=== PATIENT | female | born 1975 | race Two or more races ===

== ENCOUNTER 2017-05-15 13:27 | Emergency (ER) | payer OTHER ==
[~2017-05-15] VITALS: Ht 165.1 cm; Wt 63.5 kg
[2017-05-15 14:21] VITALS: BP 107/64
[2017-05-15] MEDS ORDERED: TETANUS-DIPTH-ACEL PERTUSSIS 0.5ML SYRG IM ONE (15:30)
[2017-05-18 14:10] LABS: Hepatitis B Surface Antibody Positive
[2017-05-18 14:20] LABS: Hepatitis B Surface Antigen Negative (Negative)
== END 2017-05-15 15:43 | disposition home or self-care (01) ==
LOC: ER 13:27
DX: S61.232A Puncture wound without foreign body of right middle finger without damage to nail, initial encounter (principal); W46.0XXA Contact with hypodermic needle, initial encounter; Y93.89 Activity, other specified; Y99.0 Civilian activity done for income or pay; Y92.89 Other specified places as the place of occurrence of the external cause
CPT/HCPCS: 36415; 86703; 86706; 86803; 87340; 90471; 90715

== ENCOUNTER → 2017-06-26 | Outpatient (CLI) | payer OTHER ==
[2017-06-28 09:53] LABS: Hepatitis B Surface Antibody Positive
[2017-06-28 10:12] LABS: Hepatitis B Surface Antigen Negative (Negative)
== END | disposition home or self-care (01) ==
LOC: LAB 11:11
PROVIDERS: ATTEND Nurse Practitioner
DX: Z57.8 Occupational exposure to other risk factors (principal)
CPT/HCPCS: 36415; 86703; 86706; 86803; 87340

== ENCOUNTER → 2018-01-01 | Outpatient (CLI) | payer OTHER ==
[2018-01-03 10:48] LABS: Hepatitis B Surface Antibody Positive
[2018-01-03 13:35] LABS: Hepatitis B Surface Antigen Negative (Negative)
== END | disposition home or self-care (01) ==
LOC: LAB 09:02
PROVIDERS: ATTEND Preventive Medicine Preventive Medicine/Occupational Environmental Medicine
DX: Z15.89 Genetic susceptibility to other disease (principal)
CPT/HCPCS: 36415; 86703; 86706; 86803; 87340